=== PATIENT | male | born 1955 | race Caucasian/White ===

== ENCOUNTER 2018-08-05 11:41 | Emergency (ER) | payer MEDICAID ==
[2018-08-05 11:41] VITALS: BMI 28.2
--- NOTE | 2018-08-05 12:18 | C.PDOC ---
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 Patient states hes been having lower back pain for the past 2-3 years now after a fall, radiating to his lower legs, right worse than left. He rates the pain 10/10. Also complains of numbness and tingling to both legs. Reports that he had x-rays and MRIs done in the past but is unsure of the results. Patient takes tramadol for the pain. Time Seen by Provider: 08/05/18 12:03 Chief Complaint (Nursing): Lower Extremity Problem/Injury History/Exam Limitations: no limitations Onset/Duration Of Symptoms: Days Current Symptoms Are (Timing): Still Present Past Medical History Reviewed: Historical Data, Nursing Documentation, Vital Signs Vital Signs: Last Vital Signs Temp 98.5 F 08/05/18 11:53 Pulse 56 L 08/05/18 11:53 Resp 18 08/05/18 11:53 BP 121/80 08/05/18 11:53 Pulse Ox 98 08/05/18 11:53 - Medical History PMH: Chronic Pain (arthitis) Family History: States: No Known Family Hx - Social History Hx Tobacco Use: Yes Hx Alcohol Use: Yes Hx Substance Use: No - Immunization History Hx Tetanus Toxoid Vaccination: No Hx Influenza Vaccination: Yes Hx Pneumococcal Vaccination: No Review Of Systems Constitutional: Negative for: Fever, Chills Cardiovascular: Negative for: Chest Pain Respiratory: Negative for: Shortness of Breath Gastrointestinal: Negative for: Nausea, Vomiting, Abdominal Pain, Diarrhea Genitourinary: Negative for: Dysuria, Hematuria Musculoskeletal: Positive for: Back Pain (lower back), Leg Pain (bilateral) Neurological: Positive for: Numbness (and tingling). Negative for: Headache, Dizziness Physical Exam - Physical Exam Appears: Non-toxic, No Acute Distress Skin: Warm, Dry Head: Atraumatic Eye(s): bilateral: Normal Inspection Oral Mucosa: Moist Neck: Supple Cardiovascular: Rhythm Regular Respiratory: Normal Breath Sounds, No Wheezing Gastrointestinal/Abdominal: Soft, No Tenderness Back: No CVA Tenderness, Vertebral Tenderness (lumbar), Paraspinal Tenderness (lumbar), Other (no ecchymosis) Extremity: Normal ROM (of lower extremities), No Pedal Edema, No Calf Tenderness, Capillary Refill (less than 2 seconds), No Deformity, Swelling (on lateral aspect of right foot) Pulses: Left Dorsalis Pedis: Normal, Right Dorsalis Pedis: Normal Neurological/Psych: Oriented x3, Normal Speech, Normal Motor (5/5 motor strength), Normal Sensation Gait: Unsteady ED Course And Treatment O2 Sat by Pulse Oximetry: 98 (RA) Pulse Ox Interpretation: Normal Medical Decision Making Medical Decision Making: Plan: --Vascular Studies ordered Progress: 12:[address] Brooks office for XR and MRI results. 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 Notified Dr. Greenberg -D/w patient and will contact him with any update of results -patient verbalized understanding and is in agreement with plan Disposition Counseled Patient/Family Regarding: Studies Performed, Diagnosis, Need For Followup, Rx Given - Disposition Referrals: Abdifatah Greenberg DPM [[facility]] - Disposition: HOME/ ROUTINE Disposition Time: 15:11 Condition: STABLE Additional Instructions: Follow up with Dr. Joiner for further evaluation of right foot pain Follow up with outreach specialist regarding herniated disc and right knee pain Continue pain meds as needed return to ED if symptoms worsen Instructions: Herniated Disc (DC), Intervertebral Discectomy (DC), Herniated Disc Exercises, Knee Pain (DC) Forms: [employer] (Filipino) Print Language: KAZAKH - Clinical Impression Clinical Impression: Lumbar pain, Lumbar herniated disc, Right knee pain, Right foot pain - PA / THREAD WINDER / Resident Statement MD/DO has reviewed & agrees with the documentation as recorded. - Scribe Statement The provider has reviewed the documentation as recorded by the Christinaibjojo Meredith All medical record entries made by the Christinaibjojo were at my direction and personally dictated by me. I have reviewed the chart and agree that the record accurately reflects my personal performance of the history, physical exam, medical decision making, and the department course for this patient. I have also personally directed, reviewed, and agree with the discharge instructions and disposition.
[2018-08-05 15:13] VITALS: BP 122/77; PULSE 59; RESP 19; TEMP 97.9
[2018-08-05 15:14] VITALS: O2SAT 98
--- NOTE | 2018-08-07 11:06 | VASCLAB ---
Date of service: 08/05/2018 STUDY DESCRIPTION: Lower Extremity Arterial Exam (PVR). HISTORY: bilateral PAD/PVD PRIORS: None. TECHNIQUE: Pulse volume recording waveforms and segmental pressures of bilateral lower extremities at multiple levels were obtained. Ankle Brachial Indices (ABIs) were calculated. Report prepared by KEIKO Presley RIGHT LOWER EXTREMITY: * Brachial artery: Pressure - 123 mmHg. * Low thigh: Pressure - 172 mmHg: Ratio - 1.40 PVR waveform: Pulsatile * Calf: Pressure - 155 mmHg: Ratio - 1.26 PVR waveform: Pulsatile * Posterior tibial Artery: Pressure - 152 mmHg: Ratio - 1.24 PVR waveform: Pulsatile * Dorsalis pedis Artery: Pressure - 135 mmHg: Ratio - 1.10 PVR waveform: Pulsatile Ankle brachial index (GALEN): 1.24 LEFT LOWER EXTREMITY: * Brachial artery: Pressure - 120 mmHg. * Low thigh: Pressure - 160 mmHg: Ratio - 1.30 PVR waveform: Pulsatile * Calf: Pressure - 165 mmHg: Ratio - 1.34 PVR waveform: Pulsatile * Posterior tibial Artery: Pressure - 143 mmHg: Ratio - 1.16 PVR waveform: Pulsatile * Dorsalis pedis Artery: Pressure - 144 mmHg: Ratio - 1.17 PVR waveform: Pulsatile Ankle brachial index (GALEN): 1.17 OTHER FINDINGS: None. IMPRESSION: Ankle brachial indexes and arterial PVR waveforms suggest normal arterial perfusion to bilateral lower extremities, at rest.
== END 2018-08-05 15:22 | disposition home or self-care (01) ==
LOC: C.ER 11:41
DX: M51.26 Other intervertebral disc displacement, lumbar region (principal); M25.561 Pain in right knee; M79.671 Pain in right foot